=== PATIENT | male | born 1980 | race Caucasian/White ===

== ENCOUNTER 2018-08-23 08:58 | Emergency (ER) | payer OTHER ==
[~2018-08-23] VITALS: Ht 180.3 cm; Wt 78.9 kg
[2018-08-23 09:01] VITALS: BP 141/85
[2018-08-23] MEDS ORDERED: TETRACAINE HCL/PF 0.5% OPTH 4 ML BTL OP ONE (09:55)
[2018-08-23] MEDS ORDERED: FLUORESCEIN OPTH STRIP 0.6 MG OP ONE (10:50)
[2018-08-23 11:35] VITALS: BP 135/80
== END 2018-08-23 11:35 | disposition home or self-care (01) ==
LOC: MED 08:58
DX: H16.001 Unspecified corneal ulcer, right eye (principal); G43.909 Migraine, unspecified, not intractable, without status migrainosus
CPT/HCPCS: 99283